=== PATIENT | male | born 2000 | race Caucasian/White ===

== ENCOUNTER 2023-04-30 17:32 | Emergency (ER) | payer OTHER ==
[2023-04-30] MEDS ORDERED: Morphine 10 MG/ML VIAL ONE (18:00)
== END 2023-04-30 19:45 | disposition home or self-care (01) ==
LOC: CSHERS 17:32
DX: S42.032A Displaced fracture of lateral end of left clavicle, initial encounter for closed fracture (principal); S09.90XA Unspecified injury of head, initial encounter; V28.49XA Other motorcycle driver injured in noncollision transport accident in traffic accident, initial encounter
CPT/HCPCS: 70450; 71045; 72125; 96372; J2270

== ENCOUNTER 2023-07-26 18:01 | Emergency (ER) | payer OTHER | END 2023-07-26 19:42 | disposition home or self-care (01) | LOC: CSHERS 18:01 | DX: R20.2 Paresthesia of skin (principal) | CPT/HCPCS: 99284 ==